=== PATIENT | male | born 1980 | race Caucasian/White ===

== ENCOUNTER 2016-04-25 23:03 | Emergency (ER) | payer MEDICARE ==
[2016-04-25 23:14] VITALS: BP 136/77
[2016-04-26 00:18] LABS: ALT 65 U/L (7-52); AST 28 U/L (13-39); Albumin 4.5 g/dL (3.2-5.2); Alkaline Phosphatase 137 U/L (34-104); Anion Gap 9 mmol/L (2-11); Blood Urea Nitrogen 13 mg/dL (6-24); CO2 Carbon Dioxide 25 mmol/L (22-32); Calcium 9.5 mg/dL (8.6-10.3); Chloride 104 mmol/L (101-111); EGFR African American 118.2 (>60); EGFR Non-African American 91.9 (>60); Globulin 3.1 g/dL (2-4); Glucose 89 mg/dL (70-100); Potassium 3.7 mmol/L (3.5-5.0); Sodium 138 mmol/L (133-145); Total Protein 7.6 g/dL (6.4-8.9)
[2016-04-26 00:19] LABS: Acetaminophen < 15 mcg/mL; Alcohol < 10 mg/dL (<10); Salicylate < 2.50 mg/dL (<30)
[2016-04-26 00:27] LABS: Benzodiazepine Urine Screen Presumptive Positive (None Detect); TSH (Thyroid Stimulating Horm) 6.93 mcIU/mL (0.34-5.60)
[2016-04-26 00:48] LABS: Hematocrit 41 % (42-52); Hemoglobin 13.7 g/dl (14.0-18.0); Mean Corpuscular HGB Conc 34 g/dl (31-36); Mean Corpuscular Hemoglobin 32 pg (27-31); Mean Corpuscular Volume 95 fL (80-94); Mean Platelet Volume 9 um3 (7.4-10.4); Red Blood Count 4.31 10^6/ul (4.0-5.4); Red Cell Distribution Width 14 % (10.5-15); White Blood Count 10.4 10^3/ul (3.5-10.8)
[2016-04-26 00:53] LABS: Urine Bilirubin Negative (Negative); Urine Glucose Negative (Negative); Urine Nitrite Negative (Negative)
--- NOTE | 2016-04-26 06:48 | ED ---
IDarion,Jenniffer, scribed for Rafael Marie MD on 04/26/16 at 0001 . Psychiatric Complaint - HPI Summary HPI Summary: This 35 y/o male presents to ED for acute on chronic anxiety since today. Pt states that he has been Xanax for the last 15 years but recently could not control his anxiety in spite of his medication. PMHx does include schizophrenia , insomnia, and panic disorder. He also vaguely reports use of other medications to control his anxiety. Pt is reported to have been agitated at triage. - History Of Current Complaint Chief Complaint: EDGeneral Time Seen by Provider: 04/25/16 23:33 Hx Obtained From: Patient Onset/Duration: Gradual Onset Timing: Constant Severity Initially: Mild Severity Currently: Moderate Character: Anxious Aggravating Factor(s): Nothing Alleviating Factor(s): Nothing Associated Signs And Symptoms: Positive: Negative Related History: Positive For: Prior Psychiatric Issues - Allergies/Home Medications Allergies/Adverse Reactions: Allergies Allergy/AdvReac Type Severity Reaction Status Date / Time No Known Allergies Allergy Verified 04/25/16 23:14 PMH/Surg Hx/FS Hx/Imm Hx Psychiatric History: Reports: Hx Anxiety, Hx Panic Disorder, Hx Schizophrenia Infectious Disease History: Unable to Obtain/Confirm Infectious Disease History: Denies: Traveled Outside the [place] in Last 30 Days - Family History Known Family History: Negative: Cardiac Disease - Social History Alcohol Use: Rare Substance Use Type: Reports: Marijuana Hx Tobacco Use: No Smoking Status (MU): Never Smoked Tobacco Review of Systems Negative: Fever Positive: Anxious All Other Systems Reviewed And Are Negative: Yes Physical Exam Triage Information Reviewed: Yes Vital Signs On Initial Exam: Initial Vitals Temp Pulse Resp BP Pulse Ox 98.0 F 112 16 136/77 98 04/25/16 23:06 04/25/16 23:06 04/25/16 23:06 04/25/16 23:06 04/25/16 23:06 Vital Signs Reviewed: Yes Appearance: Positive: Well-Appearing - unkempt, No Pain Distress Skin: Positive: Warm, Skin Color Reflects Adequate Perfusion, Dry Head/Face: Positive: Normal Head/Face Inspection Eyes: Positive: EOMI, MAGGIE Neck: Positive: Supple, Nontender Respiratory/Lung Sounds: Positive: Breath Sounds Present Cardiovascular: Positive: RRR, Pulses are Symmetrical in both Upper and Lower Extremities Musculoskeletal: Positive: Strength/ROM Intact Neurological: Positive: Sensory/Motor Intact, Alert, Oriented to Person Place, Time Psychiatric: Positive: Affect/Mood Appropriate AVPU Assessment: Alert Diagnostics - Vital Signs Vital Signs Temp Pulse Resp BP Pulse Ox 04/25/16 23:06 98.0 F 112 16 136/77 98 - Laboratory Lab Results: Lab Results 04/25/16 04/25/16 04/25/16 Range/Units 23:38 23:38 23:40 WBC 10.4 (3.5-10.8) 10^3/ul RBC 4.31 (4.0-5.4) 10^6/ul Hgb 13.7 L (14.0-18.0) g/dl Hct 41 L (42-52) % MCV 95 H (80-94) fL MCH 32 H (27-31) pg MCHC 34 (31-36) g/dl RDW 14 (10.5-15) % Plt Count 224 (150-450) 10^3/ul MPV 9 (7.4-10.4) um3 Neut % (Auto) 58.2 (38-83) % Lymph % (Auto) 28.4 (25-47) % [place] % (Auto) 9.3 H (1-9) % Eos % (Auto) 3.5 (0-6) % Baso % (Auto) 0.6 (0-2) % Absolute Neuts (auto) 6.1 (1.5-7.7) 10^3/ul Absolute Lymphs (auto) 3.0 (1.0-4.8) 10^3/ul Absolute Monos (auto) 1.0 H (0-0.8) 10^3/ul Absolute Eos (auto) 0.4 (0-0.6) 10^3/ul Absolute Basos (auto) 0.1 (0-0.2) 10^3/ul Absolute Nucleated RBC 0.01 10^3/ul Nucleated RBC % 0 Sodium 138 (133-145) mmol/L Potassium 3.7 (3.5-5.0) mmol/L Chloride 104 (101-111) mmol/L Carbon Dioxide 25 (22-32) mmol/L Anion Gap 9 (2-11) mmol/L BUN 13 (6-24) mg/dL Creatinine 0.93 (0.67-1.17) mg/dL Est GFR ( Amer) 118.2 (>60) Est GFR (Non-Af Amer) 91.9 (>60) BUN/Creatinine Ratio 14.0 (8-20) Glucose 89 (70-100) mg/dL Calcium 9.5 (8.6-10.3) mg/dL Total Bilirubin 0.30 (0.2-1.0) mg/dL AST 28 (13-39) U/L ALT 65 H (7-52) U/L Alkaline Phosphatase 137 H (34-104) U/L Total Protein 7.6 (6.4-8.9) g/dL Albumin 4.5 (3.2-5.2) g/dL Globulin 3.1 (2-4) g/dL Albumin/Globulin Ratio 1.5 (1-3) TSH 6.93 H (0.34-5.60) mcIU/mL Urine Color Urine Appearance Urine pH (5-9) Ur Specific [place] (1.010-1.030) Urine Protein (Negative) Urine Ketones (Negative) Urine Blood (Negative) Urine Nitrate (Negative) Urine Bilirubin (Negative) Urine Urobilinogen (Negative) Ur Leukocyte Esterase (Negative) Urine Glucose (Negative) Salicylates < 2.50 (<30) mg/dL Urine Opiates Screen None detected (None Detect) Acetaminophen < 15 mcg/mL Ur Barbiturates Screen None detected (None Detect) Ur Phencyclidine Scrn None detected (None Detect) Ur Amphetamines Screen None detected (None Detect) U Benzodiazepines Scrn Presumptive positive H (None Detect) Urine Cocaine Screen None detected (None Detect) U Cannabinoids Screen None detected (None Detect) Serum Alcohol < 10 (<10) mg/dL 04/25/16 Range/Units 23:40 WBC (3.5-10.8) 10^3/ul RBC (4.0-5.4) 10^6/ul Hgb (14.0-18.0) g/dl Hct (42-52) % MCV (80-94) fL MCH (27-31) pg MCHC (31-36) g/dl RDW (10.5-15) % Plt Count (150-450) 10^3/ul MPV (7.4-10.4) um3 Neut % (Auto) (38-83) % Lymph % (Auto) (25-47) % [place] % (Auto) (1-9) % Eos % (Auto) (0-6) % Baso % (Auto) (0-2) % Absolute Neuts (auto) (1.5-7.7) 10^3/ul Absolute Lymphs (auto) (1.0-4.8) 10^3/ul Absolute Monos (auto) (0-0.8) 10^3/ul Absolute Eos (auto) (0-0.6) 10^3/ul Absolute Basos (auto) (0-0.2) 10^3/ul Absolute Nucleated RBC 10^3/ul Nucleated RBC % Sodium (133-145) mmol/L Potassium (3.5-5.0) mmol/L Chloride (101-111) mmol/L Carbon Dioxide (22-32) mmol/L Anion Gap (2-11) mmol/L BUN (6-24) mg/dL Creatinine (0.67-1.17) mg/dL Est GFR ( Amer) (>60) Est GFR (Non-Af Amer) (>60) BUN/Creatinine Ratio (8-20) Glucose (70-100) mg/dL Calcium (8.6-10.3) mg/dL Total Bilirubin (0.2-1.0) mg/dL AST (13-39) U/L ALT (7-52) U/L Alkaline Phosphatase (34-104) U/L Total Protein (6.4-8.9) g/dL Albumin (3.2-5.2) g/dL Globulin (2-4) g/dL Albumin/Globulin Ratio (1-3) TSH (0.34-5.60) mcIU/mL Urine Color Yellow Urine Appearance Clear Urine pH 5.0 (5-9) Ur Specific [place] 1.012 (1.010-1.030) Urine Protein Negative (Negative) Urine Ketones Negative (Negative) Urine Blood Negative (Negative) Urine Nitrate Negative (Negative) Urine Bilirubin Negative (Negative) Urine Urobilinogen Negative (Negative) Ur Leukocyte Esterase Negative (Negative) Urine Glucose Negative (Negative) Salicylates (<30) mg/dL Urine Opiates Screen (None Detect) Acetaminophen mcg/mL Ur Barbiturates Screen (None Detect) Ur Phencyclidine Scrn (None Detect) Ur Amphetamines Screen (None Detect) U Benzodiazepines Scrn (None Detect) Urine Cocaine Screen (None Detect) U Cannabinoids Screen (None Detect) Serum Alcohol (<10) mg/dL Result Diagrams: 04/25/16 23:40 04/25/16 23:38 Lab Statement: Any lab studies that have been ordered have been reviewed, and results considered in the medical decision making process. Course/Dx - Course Assessment/Plan: DISCHARGE HOME STABLE AFTER MHE. - Differential Dx/Clinical Impression Provider Diagnosis: Mental health problem Discharge - Discharge Plan Condition: Stable Disposition: HOME Referrals: Non Staff,Doctor [Primary Care Provider] - Additional Instructions: Per completion of a mental health evaluation, you are cleared for release and do not require inpatient psychiatric hospitalization at this time. Please go to nearest emergency room or call 911 if safety concerns arise or condition worsens. Important Phone Numbers: [facility]~~ ph:[phone] Suicide Prevention and Crisis Services~~~~~~~~~~~~~~~~~ph:[phone] [place] Suicide Prevention Lifeline~~~~~~~~~~~~~~~~~~~ph:[phone] (0767) [facility]~~~~~~~~~~~~~~~~ ph:[phone] Alcoholics Anonymous~~~~~~~~~~~~~~~~~~~~~~~~~~~ph:[phone] [facility]~~~~~~ ~~ ph:[phone] [place] [employer] ph:[phone] The documentation as recorded by the Darion miller Soohyun accurately reflects the service I personally performed and the decisions made by , Rafael Marie MD.
== END 2016-04-26 07:35 | disposition home or self-care (01) ==
LOC: ED 23:03
DX: Z00.8 Encounter for other general examination (principal); F41.9 Anxiety disorder, unspecified
CPT/HCPCS: 36415; 80053; 80307; 80320; 80329; 81003; 84443; 85025; 99282; G0480

== ENCOUNTER 2016-08-08 14:31 | Emergency (ER) | payer MEDICARE ==
[2016-08-08 19:29] LABS: Hematocrit 44 % (42-52); Hemoglobin 14.7 g/dl (14.0-18.0); Mean Corpuscular HGB Conc 34 g/dl (31-36); Mean Corpuscular Hemoglobin 31 pg (27-31); Mean Corpuscular Volume 92 fL (80-94); Mean Platelet Volume 9 um3 (7.4-10.4); Red Blood Count 4.76 10^6/ul (4.0-5.4); Red Cell Distribution Width 13 % (10.5-15); White Blood Count 14.8 10^3/ul (3.5-10.8)
[2016-08-08 19:46] LABS: BUN/Creatinine Ratio 12.5 (8-20); Calcium 9.7 mg/dL (8.6-10.3); EGFR African American 103.3 (>60); EGFR Non-African American 80.4 (>60); Globulin 3.3 g/dL (2-4); Potassium 3.6 mmol/L (3.5-5.0); Total Bilirubin 0.3 mg/dL (0.2-1.0); Total Protein 7.3 g/dL (6.4-8.9)
--- NOTE | 2016-08-08 19:47 | RAD ---
INDICATION: Chest pain COMPARISON: None TECHNIQUE: PA and lateral dual-energy views were obtained. FINDINGS: Bones/Soft Tissues: There are no acute bony findings. Cardiomediastinal: The cardiomediastinal silhouette is normal. Lungs: There are no infiltrates. Pleura: There are no pleural effusions. Other: None IMPRESSION: NORMAL CHEST.
--- NOTE | 2016-08-08 19:58 | ED ---
Delphine Gamez SooYoung, scribed for Kike Morgan MD on 08/08/16 at 1910 . HPI Chest Pain - HPI Summary HPI Summary: A 36 y/o M presents to ED with c/o mid-sternal CP onset approx 1230 today. Associated sx: RAJAN, dental pain. Pt states he's been having intermittent episodes of CP for the past 2-3 weeks, lasting about 5-10 minutes. Prior to today, his most recent episode was last night, which lasted about 30 minutes and roused him from sleep. Today's pain described as burning. Deep breaths do not aggravate the pain. He is a 1.5 ppd smoker. Last saw his PCP, Dr. Patterson in [place], about a year ago. Denies having taken OTC meds for the pain. - History of Current Complaint Chief Complaint: EDChestPainROMI Time Seen by Provider: 08/08/16 19:05 Hx Obtained From: Patient Onset/Duration: Started Hours Ago, Still Present Time of Onset: 12:30 Timing: Constant Current Severity: Severe Pain Intensity: 9 Pain Scale Used: 0-10 Numeric Chest Pain Location: Mid Sternal Associated Signs and Symptoms: Positive: Headaches, Other: - pos: dental pain - Allergy/Home Medications Allergies/Adverse Reactions: Allergies Allergy/AdvReac Type Severity Reaction Status Date / Time No Known Allergies Allergy Verified 08/08/16 18:32 PMH/Surg Hx/FS Hx/Imm Hx Previously Healthy: No Psychiatric History: Reports: Hx Anxiety, Hx Panic Disorder, Hx Schizophrenia Denies: Hx Eating Disorder Infectious Disease History: No Infectious Disease History: Denies: Traveled Outside the [place] in Last 30 Days - Family History Known Family History: Negative: Cardiac Disease - Social History Occupation: Disabled Lives: Alone Alcohol Use: None Hx Substance Use: Yes Substance Use Type: Reports: Marijuana Hx Tobacco Use: Yes Smoking Status (MU): Heavy Every Day Tobacco Smoker Amount Used/How Often: 1.5 ppd Review of Systems Negative: Fever Positive: Dental Pain Positive: Chest Pain Positive: Headache All Other Systems Reviewed And Are Negative: Yes Physical Exam Triage Information Reviewed: Yes Vital Signs On Initial Exam: Initial Vitals Temp Pulse Resp BP Pulse Ox 98.4 F 95 16 111/72 96 08/08/16 14:35 08/08/16 14:35 08/08/16 14:35 08/08/16 14:35 08/08/16 14:35 Vital Signs Reviewed: Yes Appearance: Positive: No Pain Distress, Thin Skin: Positive: Warm Head/Face: Positive: Normal Head/Face Inspection Eyes: Positive: MAGGIE ENT: Positive: Hearing grossly normal Neck: Positive: Supple Respiratory/Lung Sounds: Positive: Clear to Auscultation, Breath Sounds Present Cardiovascular: Positive: RRR Abdomen Description: Positive: Nontender, Soft Bowel Sounds: Positive: Present Musculoskeletal: Positive: Strength/ROM Intact Neurological: Positive: Alert, Oriented to Person Place, Time, Normal Gait Psychiatric: Positive: Affect/Mood Appropriate - [place] Coma Scale Coma Scale Total: 15 Diagnostics - Vital Signs Vital Signs Temp Pulse Resp BP Pulse Ox 08/08/16 18:30 91 114/72 93 08/08/16 17:21 99.2 F 96 17 108/56 98 08/08/16 16:15 99.2 F 97 16 127/72 97 08/08/16 14:35 98.4 F 95 16 111/72 96 - Laboratory Lab Results: Lab Results 08/08/16 08/08/16 Range/Units 19:20 19:20 WBC 14.8 H (3.5-10.8) 10^3/ul RBC 4.76 (4.0-5.4) 10^6/ul Hgb 14.7 (14.0-18.0) g/dl Hct 44 (42-52) % MCV 92 (80-94) fL MCH 31 (27-31) pg MCHC 34 (31-36) g/dl RDW 13 (10.5-15) % Plt Count 182 (150-450) 10^3/ul MPV 9 (7.4-10.4) um3 Neut % (Auto) 74.0 (38-83) % Lymph % (Auto) 17.6 L (25-47) % [place] % (Auto) 5.9 (1-9) % Eos % (Auto) 1.9 (0-6) % Baso % (Auto) 0.6 (0-2) % Absolute Neuts (auto) 11.0 H (1.5-7.7) 10^3/ul Absolute Lymphs (auto) 2.6 (1.0-4.8) 10^3/ul Absolute Monos (auto) 0.9 H (0-0.8) 10^3/ul Absolute Eos (auto) 0.3 (0-0.6) 10^3/ul Absolute Basos (auto) 0.1 (0-0.2) 10^3/ul Absolute Nucleated RBC 0.01 10^3/ul Nucleated RBC % 0 Sodium 138 (133-145) mmol/L Potassium 3.6 (3.5-5.0) mmol/L Chloride 100 L (101-111) mmol/L Carbon Dioxide 30 (22-32) mmol/L Anion Gap 8 (2-11) mmol/L BUN 13 (6-24) mg/dL Creatinine 1.04 (0.67-1.17) mg/dL Est GFR ( Amer) 103.3 (>60) Est GFR (Non-Af Amer) 80.4 (>60) BUN/Creatinine Ratio 12.5 (8-20) Glucose 107 H (70-100) mg/dL Calcium 9.7 (8.6-10.3) mg/dL Total Bilirubin 0.30 (0.2-1.0) mg/dL AST 22 (13-39) U/L ALT 44 (7-52) U/L Alkaline Phosphatase 86 (34-104) U/L Troponin I 0.00 (<0.04) ng/mL Total Protein 7.3 (6.4-8.9) g/dL Albumin 4.0 (3.2-5.2) g/dL Globulin 3.3 (2-4) g/dL Albumin/Globulin Ratio 1.2 (1-3) Result Diagrams: 08/08/16 19:20 08/08/16 19:20 Lab Statement: Any lab studies that have been ordered have been reviewed, and results considered in the medical decision making process. - Radiology CXR Xray Interpretation: No Acute Changes - Impression: Normal Radiology Interpretation Completed By: Radiologist - EKG 1 Cardiac Rate: NL - 68bpm EKG Rhythm: Sinus Rhythm ST Segment: Normal - NO STEMI Re-Evaluation - Re-Evaluation First Eval Change: Improved Comment: results d/w pt Chest Pain Course/Dx - Course Course Of Treatment: Pt is a 36 y/o M with NKA presenting with c/o mid-sternal CP onset approx 1230. Associated sx: RAJAN, dental pain. Pt states he's been having intermittent episodes of CP for the past 2-3 weeks, lasting about 5-10 minutes. Most recent episode was last night, rousing him from sleep and lasting 30 minutes. Today's pain described as burning. Deep breaths do not aggravate the pain. He is a 1.5 ppd smoker. Last saw his PCP a year ago. Denies having taken OTC meds for the pain. Labs are WNL except elevated WBCs, mildly elevated glucose. CXR is nml. EKG is NSR, no STEMI. Trop is 0.00. - Diagnoses Provider Diagnoses: Chest pain Discharge - Discharge Plan Condition: Stable Disposition: HOME Patient Education Materials: Chest Pain (ED) Referrals: Non Staff,Doctor [Primary Care Provider] - [facility] [Outside] Additional Instructions: Be sure to establish and follow up with a primary care physician. Take Tylenol or Ibuprofen for chest pain. Please return to the ED if you experience new or worsening symptoms. The documentation as recorded by the Delphine miller SooYoung accurately reflects the service I personally performed and the decisions made by me, Kike Morgan MD.
[2016-08-08 19:59] VITALS: BP 108/65
[2016-08-08] MEDS ORDERED: Ibuprofen TAB* 800 MG PO ONE (20:30)
== END 2016-08-08 20:38 | disposition home or self-care (01) ==
LOC: ED 14:31
DX: R07.9 Chest pain, unspecified (principal); R51 Headache; K08.89 Other specified disorders of teeth and supporting structures; F17.210 Nicotine dependence, cigarettes, uncomplicated
CPT/HCPCS: 36415; 71020; 80053; 84484; 85025; 93005; 99284; A9270-GY